=== PATIENT | male | born 1970 | race Caucasian/White ===

== ENCOUNTER 2024-02-15 09:45 | Outpatient (CLI) | payer OTHER, SELFPAY ==
--- NOTE | ~2024-02-15 | XR_ITS ---
XR hip RT 2V w AP pelvis Ordering provider: Georgina Diaz PA-C History: . M25.551 - Pain in right hip . Comparison: None. FINDINGS: BONES: No acute fracture or dislocation. HIP JOINT SPACES: Bilateral hip osteoarthritic changes of moderate degree. SACROILIAC JOINT SPACES/LUMBAR SPINE: The sacroiliac joint spaces are normal. Mild degenerative grajeda es of the visualized lower lumbar spine. PUBIC SYMPHYSIS: Normal. SOFT TISSUES: Normal. IMPRESSION: No acute osseous abnormality pelvis and right hip. Reviewed, dictated and finalized at location A. R TUBE CUTTER
--- NOTE | ~2024-02-15 | XR_ITS ---
Lumbosacral Spine: AP and lateral views Clinical History: Pain Findings: The normal lordotic curve is maintained. No acute fracture or subluxation. There is advance d degenerative disc narrowing at L4-L5 and L5-S1. There is advanced facet arthropathy levels. There i s mild degenerative disc change and facet arthropathy the upper lumbar spine. The sacroiliac joints a re normally outlined. Impression: Advanced degenerative spondylosis of the lower lumbar spine, as detailed above. Mild degenerative change in the upper lumbar spine. Reviewed, dictated and finalized at location M. BONDER Impression: Advanced degenerative spondylosis of the lower lumbar spine, as detailed above. Mild degenerative change in the upper lumbar spine.
== END 2024-02-15 09:46 | disposition home or self-care (01) ==
PROVIDERS: PCP Family Medicine; Visit Provider Physician Assistant Medical
DX: M47.817 Spondylosis without myelopathy or radiculopathy, lumbosacral region (principal); M47.816 Spondylosis without myelopathy or radiculopathy, lumbar region; M25.551 Pain in right hip
CPT/HCPCS: 72100; 73502

== ENCOUNTER 2024-06-21 09:19 | Outpatient (CLI) | payer OTHER, SELFPAY ==
--- NOTE | ~2024-06-21 | XR_ITS ---
AP view of the pelvis and AP and lateral views of the right hip Clinical history: Arthritis Findings: No acute fracture or dislocation is seen. Osseous alignment is anatomic. There is mild righ t hip joint osteoarthritis. Soft tissues are unremarkable. Impression: Mild right hip joint osteoarthritis. Reviewed, dictated and finalized at location . Impression: Mild right hip joint osteoarthritis.
== END 2024-06-21 09:20 | disposition home or self-care (01) ==
PROVIDERS: PCP Family Medicine; Visit Provider Orthopaedic Surgery
DX: M16.11 Unilateral primary osteoarthritis, right hip (principal)
CPT/HCPCS: 73502

== ENCOUNTER 2024-08-11 07:40 | Outpatient (CLI) | payer OTHER, SELFPAY ==
--- NOTE | ~2024-08-11 | MR_ITS ---
MRI of the lumbar spine Clinical History: Back pain Technique: Axial T2-weighted images, and sagittal T1-weighted, T2-weighted, and T2 fat-sat images wer e acquired. Findings: No acute fracture or subluxation seen in the lumbar spine. Possible minimal chronic wedging deformity of L1. No suspicious bone marrow signal abnormality seen.. At L1-L2, there is no disc bulge or herniation. There is minimal facet hypertrophy. No spinal canal s tenosis. There is mild bilateral neural foraminal narrowing. At L2-L3, there is minimal disc bulge with minimal facet arthropathy. No central canal stenosis or ne ural foraminal narrowing. At L3-L4, there is minimal disc bulge with minimal facet arthropathy. No central canal stenosis or de finite neural foraminal narrowing. At L4-L5, there is advanced degenerative disc narrowing. There is mild disc bulge with moderate to ad vanced facet arthropathy. No central canal stenosis. There is moderate to severe right neural foramin al narrowing, and minimal left neural foraminal narrowing. At L5-S1, there is diffuse disc bulge with moderate facet arthropathy. No central canal stenosis. The re is severe bilateral neural foraminal narrowing. Paravertebral soft tissues are unremarkable. Impression: Moderate degenerative spondylosis at L4-L5 and L5-S1, as detailed above. Reviewed, dictated and finalized at [facility]. Impression: Moderate degenerative spondylosis at L4-L5 and L5-S1, as detailed above.
== END 2024-08-11 07:41 | disposition home or self-care (01) ==
PROVIDERS: PCP Family Medicine; Visit Provider Physician Assistant Medical
DX: M47.816 Spondylosis without myelopathy or radiculopathy, lumbar region (principal); M47.817 Spondylosis without myelopathy or radiculopathy, lumbosacral region; R29.898 Other symptoms and signs involving the musculoskeletal system
CPT/HCPCS: 72148

== ENCOUNTER 2025-02-08 15:40 | Outpatient (CLI) | payer OTHER, SELFPAY ==
--- NOTE | ~2025-02-08 | XR_ITS ---
EXAMINATION: XR chest 2V, 02/08/2025 15:41 GARMENT CUTTER HISTORY: Z01.818 - Encounter for other preprocedural examination COMPARISON: No comparisons available. Technique: 2 views obtained. Findings: The lungs are clear, no effusion. No pneumothorax. Heart is normal size. Mediastinal and hilar contours are within normal limits. Bony thorax no acute abnormality. Impression: No acute cardiopulmonary abnormality. Reviewed, dictated and finalized at location P. ENT CUTTER Impression: No acute cardiopulmonary abnormality.
== END 2025-02-08 15:41 | disposition home or self-care (01) ==
PROVIDERS: PCP Family Medicine; Visit Provider Physician Assistant
DX: Z01.818 Encounter for other preprocedural examination (principal); M16.11 Unilateral primary osteoarthritis, right hip; I10 Essential (primary) hypertension
CPT/HCPCS: 71046